=== PATIENT | male | born 1970 | race American Indian/Alaskan Native ===

== ENCOUNTER 2021-09-22 18:34 | Emergency (ER) | payer OTHER ==
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
[2021-09-22] MEDS: IBUPROFEN 600 MG TAB PO ONE (19:43)
[2021-09-22 20:34] VITALS: BP 147/90
== END 2021-09-22 20:32 | disposition home or self-care (01) ==
LOC: ED 18:34
DX: S39.012A Strain of muscle, fascia and tendon of lower back, initial encounter (principal); M62.830 Muscle spasm of back; V89.2XXA Person injured in unspecified motor-vehicle accident, traffic, initial encounter; Y93.89 Activity, other specified; Y92.89 Other specified places as the place of occurrence of the external cause; Y99.8 Other external cause status
CPT/HCPCS: 99282